=== PATIENT | male | born 1970 | race Caucasian/White ===

== ENCOUNTER 2017-09-20 12:14 | Day surgery (SDC) | payer OTHER ==
[2017-09-20] VITALS (9 sets, daily range): BP systolic 101–123; BP diastolic 56–86; PULSE 66–100; TEMP 98.2–98.7
[~2017-09-20] VITALS: Ht 172.7 cm; Wt 89.5 kg
[~2017-09-20 12:14] MED LIST: NORVASC 5MG5 MG/TAB PO; TOPAMAX 100MG100 M1 PO; ULTRAM ER200 MG PO
[2017-09-20] MEDS ORDERED: NEURONTIN800 MG/TAB PO (13:34)
[2017-09-20] MEDS ORDERED: LEXAPRO 10MG10 MG PO (13:35)
[2017-09-20] MEDS ORDERED: ROBAXIN 50500 MG/TAB PO (13:35)
[2017-09-20] MEDS ORDERED: INDERAL 10MG10 MG PO (13:36)
[2017-09-20] MEDS ORDERED: NORCO 325 MG-51 TAB PO (13:38)
== END 2017-09-20 21:30 | disposition home or self-care (01) ==
LOC: SURG 12:14 → SDCO 12:14 → SURG 12:47 → SDCO 18:00
DX: N20.1 Calculus of ureter (principal); I10 Essential (primary) hypertension; G47.33 Obstructive sleep apnea (adult) (pediatric); G89.29 Other chronic pain; Z80.3 Family history of malignant neoplasm of breast; Z83.3 Family history of diabetes mellitus; Z82.49 Family history of ischemic heart disease and other diseases of the circulatory system; Z80.42 Family history of malignant neoplasm of prostate
CPT/HCPCS: OP; C1769; J0690; J1100; J1885; J2270; J2405; J2704; J3010; J7030; Q9967

== ENCOUNTER → 2018-08-31 | Outpatient (CLI) | payer OTHER ==
[~2018-08-31] MED LIST changes: +INDERAL 10MG10 MG PO; +LEXAPRO 10MG10 MG PO; +NEURONTIN800 MG/TAB PO; +NORCO 325 MG-51 TAB PO; +ROBAXIN 50500 MG/TAB PO
== END ==
LOC: COL.PUL 10:56
DX: R06.02 Shortness of breath (principal); F17.210 Nicotine dependence, cigarettes, uncomplicated
CPT/HCPCS: J7674

== ENCOUNTER → 2018-09-21 | Outpatient (CLI) | payer OTHER | LOC: MHCPAIN 15:02 | DX: G89.29 Other chronic pain (principal); M47.817 Spondylosis without myelopathy or radiculopathy, lumbosacral region; M54.16 Radiculopathy, lumbar region; M53.3 Sacrococcygeal disorders, not elsewhere classified | CPT/HCPCS: G0463 ==

== ENCOUNTER → 2018-09-29 | Outpatient (CLI) | payer OTHER | LOC: MHCPAIN 14:22 | DX: M47.817 Spondylosis without myelopathy or radiculopathy, lumbosacral region (principal); M54.16 Radiculopathy, lumbar region | CPT/HCPCS: J1100; Q9967 ==

== ENCOUNTER → 2018-11-09 | Outpatient (CLI) | payer OTHER | LOC: MHCPAIN 15:36 | DX: G89.29 Other chronic pain (principal); M47.817 Spondylosis without myelopathy or radiculopathy, lumbosacral region; M54.16 Radiculopathy, lumbar region; M53.3 Sacrococcygeal disorders, not elsewhere classified | CPT/HCPCS: G0463 ==

== ENCOUNTER → 2018-12-01 | Outpatient (CLI) | payer OTHER | LOC: MHCPAIN 10:47 | DX: M47.817 Spondylosis without myelopathy or radiculopathy, lumbosacral region (principal); M54.16 Radiculopathy, lumbar region | CPT/HCPCS: J1100; Q9967 ==

== ENCOUNTER → 2018-12-13 | Outpatient (CLI) | payer OTHER | LOC: MHCPAIN 15:25 | DX: G89.29 Other chronic pain (principal); M47.817 Spondylosis without myelopathy or radiculopathy, lumbosacral region; M54.16 Radiculopathy, lumbar region; M53.3 Sacrococcygeal disorders, not elsewhere classified | CPT/HCPCS: G0463 ==

== ENCOUNTER → 2023-03-10 | Outpatient (CLI) | payer OTHER | LOC: MHCPAIN 15:49 | DX: M47.892 Other spondylosis, cervical region (principal); M54.12 Radiculopathy, cervical region; M54.50 Low back pain, unspecified | CPT/HCPCS: G0463 ==

== ENCOUNTER → 2023-03-25 | Outpatient (CLI) | payer OTHER | LOC: MHCPAIN 03-18 15:40 | DX: M47.812 Spondylosis without myelopathy or radiculopathy, cervical region (principal); M54.12 Radiculopathy, cervical region | CPT/HCPCS: J1100; Q9967 ==

== ENCOUNTER → 2023-05-26 | Outpatient (CLI) | payer OTHER | LOC: MHCPAIN 15:38 | DX: M47.812 Spondylosis without myelopathy or radiculopathy, cervical region (principal); M48.02 Spinal stenosis, cervical region | CPT/HCPCS: G0463 ==

== ENCOUNTER → 2023-06-24 | Outpatient (CLI) | payer OTHER | LOC: MHCPAIN 08:53 | DX: M47.812 Spondylosis without myelopathy or radiculopathy, cervical region (principal); M54.2 Cervicalgia | CPT/HCPCS: J0665 ==

== ENCOUNTER → 2023-10-20 | Outpatient (CLI) | payer OTHER | LOC: MHCPAIN 14:55 | DX: M47.812 Spondylosis without myelopathy or radiculopathy, cervical region (principal); M54.12 Radiculopathy, cervical region; M48.02 Spinal stenosis, cervical region; M54.2 Cervicalgia | CPT/HCPCS: G0463 ==

== ENCOUNTER → 2023-11-25 | Outpatient (CLI) | payer OTHER ==
[~2023-11-25] MED LIST changes: +Iohexol 300 - 10 ML VIAL ONE; +Lidocaine PF 2% (20 MG/ML) 2 ML VIAL ONE
== END ==
LOC: MHCPAIN 14:17
DX: M54.12 Radiculopathy, cervical region (principal); M47.812 Spondylosis without myelopathy or radiculopathy, cervical region; R51.9 Headache, unspecified
CPT/HCPCS: J1010; Q9967